=== PATIENT | male | born 1960 | race African-American/Black ===

== ENCOUNTER 2020-11-12 18:27 | Emergency (ER) | payer OTHER ==
[~2020-11-12 18:27] MED LIST: ALKA-SELTZER H1 EACH PO; AMPICILLIN 500500 MG PO; ASPIRIN CHEWABL81 MG PO; BACLOFEN20 MG PO; BUSPAR 10MG10 MG PO; CYANOCOBAL1000 MCG/1 IM; ECOTRIN81 MG PO; FISH OIL 1,0001 EACH PO; HUMALOG; IPRAT-ALBUT 0.5-3 ML INH; ISOSORBIDE MONO20 MG PO; LACTINEX TABLET1 EA PO; LEVAQUIN500 MG PO; LIORESAL TAB 1010 MG PO; LIPITOR TAB 2020 MG PO; PLAVIX 75 MG TA75 MG PO; PROTONIX40 MG PO; SILVADENE CREAM20 GM TOP; SINGULAIR10 MG PO; TENORMIN 25 MG25 MG PO; TENORMIN 50 MG50 MG PO; TOPAMAX100 MG PO; VALIUM 5 MG TAB5 MG PO; VITAMIN B-1000 MCG/M SC; VITAMIN C1000 MG PO; VITAMIN D250000 UNIT PO; VITAMIN D31250 MCG PO; ZOLOFT50 MG PO
[2020-11-12 19:24] LABS: HEMOGLOBIN 12.4 gm/dl (14.0-17.5); RED BLOOD COUNT 4.1 M/UL (4.20-5.50); WHITE BLOOD COUNT 8.9 K/UL (4.5-11.0)
[2020-11-12 19:49] LABS: BUN/CREATININE RATIO 18 (0-10)
[2020-11-12] MEDS ORDERED: CEFUROXIME500 MG PO (20:50)
[2020-11-12] MEDS ORDERED: ZOFRAN4 MG PO (20:50)
== END 2020-11-12 22:15 | disposition home or self-care (01) ==
LOC: ER1 18:27
PROVIDERS: Family Medicine
DX: N39.0 Urinary tract infection, site not specified (principal); E86.0 Dehydration; I12.9 Hypertensive chronic kidney disease with stage 1 through stage 4 chronic kidney disease, or unspecified chronic kidney disease; E11.22 Type 2 diabetes mellitus with diabetic chronic kidney disease; N18.30 Chronic kidney disease, stage 3 unspecified; E78.5 Hyperlipidemia, unspecified; Z79.4 Long term (current) use of insulin; Z98.84 Bariatric surgery status
CPT/HCPCS: 80053; 81001; 82550; 82553; 83690; 83874; 84484; 85025; 93005; 96374; 96375; 99284; J0696; J2405